=== PATIENT | female | born 1945 | race Caucasian/White ===

== ENCOUNTER 2019-05-02 11:25 | Emergency (ER) | payer MEDICARE ==
[2019-05-02 12:03] VITALS: BP 131/85
--- NOTE | 2019-05-02 12:04 | UC ---
Skin Complaint HPI - HPI Summary HPI Summary: 74 yo female presents with rash. She tells me that she has a large property with lots of weeds. On 04/25 she was trimming these weeds. On 04/26 and 04/27 began to notice a rash on her b/l arms, abdomen, and legs. Has been red, itchy, and blistering. Mildly painful. Has not been applying any creams or lotions. Unsure if she came into contact with any poison [place]/oak or parsnip. Denies fever, recent illness, facial swelling or throat swelling, difficulty breathing, or SOB. - History of Current Complaint Chief Complaint: UCRash Time Seen by Provider: 05/02/19 12:04 Stated Complaint: RASH Hx Obtained From: Patient Onset/Duration: Gradual Onset Onset Severity: Mild Current Severity: Moderate Pain Intensity: 5 Pain Scale Used: 0-10 Numeric - Allergy/Home Medications Allergies/Adverse Reactions: Allergies Allergy/AdvReac Type Severity Reaction Status Date / Time Sulfa (Sulfonamide Allergy Swelling Verified 05/02/19 12:04 Antibiotics) PMH/Surg Hx/FS Hx/Imm Hx Endocrine History: Dyslipidemia Cardiovascular History: Hypertension GI/ History: Gastroesophageal Reflux - Surgical History Surgical History: Yes Surgery Procedure, Year, and Place: hysterectomy with appy s. left shoulder rotator cuff 2007 [facility] [place] - Family History Known Family History: Positive: Cardiac Disease, Hypertension - Social History Occupation: Retired Lives: With Family Alcohol Use: Daily Alcohol Amount: 1/day Substance Use Type: None Smoking Status (MU): Never Smoked Tobacco Have You Smoked in the Last Year: No Review of Systems All Other Systems Reviewed And Are Negative: Yes Constitutional: Positive: Negative Skin: Positive: Rash Respiratory: Positive: Negative Cardiovascular: Positive: Negative Gastrointestinal: Positive: Negative Neurovascular: Positive: Negative Neurological: Positive: Negative Psychological: Positive: Negative Physical Exam - Summary Physical Exam Summary: GENERAL: NAD. WDWN. No pain distress. SKIN: B/L arms with mildly erythematous linear rash with 1-2mm scattered blisters. Similar appearing scant lesions on abdomen and upper legs. No open wound, drainage, bleeding, streaking, or warmth. NECK: Supple. Nontender. No lymphadenopathy. CHEST: No accessory muscle use. Breathing comfortably and in no distress. CV: Pulses intact. Cap refill <2seconds NEURO: Alert. PSYCH: Age appropriate behavior. Triage Information Reviewed: Yes Vital Signs: Initial Vital Signs Temp 97.8 F 05/02/19 11:59 Pulse 99 05/02/19 11:59 Resp 18 05/02/19 11:59 BP 131/85 05/02/19 11:59 Pulse Ox 98 05/02/19 11:59 Vital Signs Reviewed: Yes Course/Dx - Course Course Of Treatment: Suspect contact dermatitis. Will rx for kenalog cream to use on her arms as this is the area that is most concentrated. Also rx for prednisone given the diffuse spread of her dermatitis. - Diagnoses Provider Diagnosis: Poison [place] dermatitis Discharge - Sign-Out/Discharge Documenting (check all that apply): Patient Departure All imaging exams completed and their final reports reviewed: No Studies - Discharge Plan Condition: Stable Disposition: HOME Prescriptions: predniSONE TAB* [Deltasone TAB*] 50 mg PO DAILY #5 tab Triamcinolone 0.1% CREAM (NF) [Kenalog 0.1% Cream (NF)] 1 applic TOPICAL BID #1 tube Patient Education Materials: Poison [place] (ED) Referrals: Elias Blanco MD [Primary Care Provider] - Additional Instructions: If you develop a fever, shortness of breath, chest pain, new or worsening symptoms - please call your PCP or go to the ED immediately. Do not use the steroid cream on your face or in your groin region - Billing Disposition and Condition Condition: STABLE Disposition: Home
== END 2019-05-02 12:20 | disposition home or self-care (01) ==
LOC: UCEAST 11:25
DX: L23.7 Allergic contact dermatitis due to plants, except food (principal); T63.791A Toxic effect of contact with other venomous plant, accidental (unintentional), initial encounter; Y92.9 Unspecified place or not applicable; Z88.1 Allergy status to other antibiotic agents; I10 Essential (primary) hypertension
CPT/HCPCS: 99212; G0463

== ENCOUNTER 2022-01-18 02:05 | Observation (INO) ==
[2022-01-18] MEDS ORDERED: NS 0.9% 1000 ml BAG 1,000 ML IV ONE ×2 (03:15→07:55)
[2022-01-18] MEDS ORDERED: Ondansetron 4 mg VIAL 2 MG/ML 2 ml VIAL IV ONE ×2 (03:15→07:32)
[2022-01-18 04:09] LABS: ABS Lymphocytes 0.7 10^3/ul (1.0-4.8); ABS Monocytes 0.6 10^3/ul (0-0.8); ABS Neutrophils 15.2 10^3/ul (1.5-7.7); Hematocrit 42 % (35-47); Lymphocyte % 4.1 %; Mean Corpuscular HGB Conc 33 g/dL (31-36); Mean Corpuscular Hemoglobin 33 pg (27-31); Mean Corpuscular Volume 98 fL (80-97); Mean Platelet Volume 8.9 fL (7.4-10.4); Platelet Count 206 10^3/uL (150-450); Red Blood Count 4.29 10^6 /uL (3.70-4.87); Red Cell Distribution Width 14 % (10-15); White Blood Count 16.5 10^3/uL (3.5-10.8)
[2022-01-18 04:23] LABS: Albumin 3.7 g/dL (3.2-5.2); Amylase 53 U/L (29-103); CO2 Carbon Dioxide 19 mmol/L (22-32); Calcium 9.1 mg/dL (8.6-10.3); Chloride 101 mmol/L (101-111); Sodium 132 mmol/L (135-145)
[2022-01-18 04:29] LABS: ALT 20 U/L (7-52); Albumin/Globulin Ratio 1.5 (1-3); Alkaline Phosphatase 66 U/L (35-149); Blood Urea Nitrogen 26 mg/dL (6-24); C Reactive Protein 50.91 mg/L (<8.01); Globulin 2.4 g/dL (2-4); Glucose 246 mg/dL (70-100); Lipase 18 U/L (11.0-82.0); Total Protein 6.1 g/dL (6.4-8.9); eGFR CKD-EPI 47.6 (>60)
[2022-01-18 04:41] LABS: Anion Gap 12 mmol/L (2-11)
[2022-01-18] MEDS ORDERED: Iodixanol (CONTRAST) 320 MG/ML 100 ML SDV IV ONE (04:51)
[2022-01-18 05:11] LABS: Activated Partial Thrombo Time 39.5 seconds (26.0-38.0); INR 1.11 (0.86-1.15)
[2022-01-18 05:14] LABS: Potassium Redraw 4.2 mmol/L (3.5-5.0)
[2022-01-18 06:40] LABS: Urine Appearance Clear; Urine Bilirubin Negative (Negative); Urine Blood Negative (Negative); Urine Color Yellow; Urine Glucose 2+(150 mg/dL) (Negative); Urine Ketones Negative (Negative); Urine Nitrite Negative (Negative); Urine Protein Negative (Negative); Urine Specific Gravity 1.055 (1.002-1.030); Urine Urobilinogen Negative (Negative)
[2022-01-18 07:55] LABS: Hematocrit 39 % (35-47); Hemoglobin 13.3 g/dL (12.0-16.0)
[2022-01-18] MEDS ORDERED: Piperacillin/Tazobac ADVAN 3.375 GM in NS 0.9% 100 ml BAG 100 ML IV ONE (07:56)
[2022-01-18] MEDS ORDERED: PEG 3000 GI LAVAGE 1 GALLON PO ONE (07:56)
[2022-01-18] MEDS ORDERED: Piperacillin/Tazobac 3.375 GM BAG ONE (08:00)
[2022-01-18] MEDS ORDERED: Ondansetron 4 mg VIAL 2 MG/ML 2 ml VIAL IV PRN (09:18)
[2022-01-18] MEDS ORDERED: Dextrose 50% Syringe 50 ml 25 GM/50 ML SYRINGE IV PUSH PRN ×2 (09:20)
[2022-01-18] MEDS ORDERED: Lactated Ringers 1000 ml BAG 1,000 ML IV SCH ×2 (11:00→19:00)
[2022-01-18] MEDS ORDERED: Lactated Ringers 1000 ml BAG 1,000 ML IV ONE (11:04)
[2022-01-18] MEDS ORDERED: Sodium Phosphate ADULT ENEMA 133 ML BTL PR ONE ×2 (15:59→16:00)
[2022-01-18] MEDS ORDERED: Pantoprazole VIAL 40 MG VIAL IV PRN (16:43)
[2022-01-18] MEDS ORDERED: Midazolam 10 mg/10 ml VIAL 1 mg/ml 10 ml VIAL (10 mg) ONE (16:50)
[2022-01-18] MEDS ORDERED: fentaNYL 100 mcg/2 ml 50 MCG/ML VIAL ONE (16:51)
[2022-01-18 16:55] LABS: Hematocrit 40 % (35-47); Hemoglobin 13.6 g/dL (12.0-16.0)
[2022-01-18] MEDS ORDERED: Zosyn per Pharmacy NOTE FOLLOW UP SCH (17:00)
[2022-01-18] MEDS ORDERED: ZOSYN 3.375 GM x ONE DOSE over 30 miuntes IV (17:00)
[2022-01-18] MEDS ORDERED: hydrALAZINE 20 mg/ml 1 ML Vial IV IV SLOW PU ONE (21:32)
[2022-01-18] MEDS: Lactated Ringers 1000 ml BAG 1,000 ML IV SCH (23:16)
[2022-01-19] MEDS: ZOSYN 3.375 GM Q8H per EXTENDED INFUSION IV SCH ×3 (00:06→17:05)
[2022-01-19 06:25] LABS: ABS Lymphocytes 1.1 10^3/ul (1.0-4.8); ABS Monocytes 1.1 10^3/ul (0-0.8); ABS Neutrophils 11.2 10^3/ul (1.5-7.7); Hematocrit 36 % (35-47); Hemoglobin 12.4 g/dL (12.0-16.0); Mean Corpuscular HGB Conc 34 g/dL (31-36); Mean Corpuscular Hemoglobin 34 pg (27-31); Mean Corpuscular Volume 98 fL (80-97); Mean Platelet Volume 8.4 fL (7.4-10.4); Platelet Count 147 10^3/uL (150-450); Red Cell Distribution Width 13 % (10-15); White Blood Count 13.4 10^3/uL (3.5-10.8)
[2022-01-19 06:43] LABS: Calcium 8.4 mg/dL (8.6-10.3); Potassium 3.5 mmol/L (3.5-5.0); eGFR CKD-EPI 72.6 (>60)
[2022-01-19] MEDS: Lactated Ringers 1000 ml BAG 1,000 ML IV SCH ×2 (11:43→20:14)
[2022-01-20] MEDS: ZOSYN 3.375 GM Q8H per EXTENDED INFUSION IV SCH ×2 (01:13→08:25)
[2022-01-20] MEDS: Lactated Ringers 1000 ml BAG 1,000 ML IV SCH (04:13)
[2022-01-20 08:16] VITALS: BP 138/69
[2022-01-20 08:21] LABS: ABS Eosinophils 0.1 10^3/ul (0-0.6); ABS Lymphocytes 1.5 10^3/ul (1.0-4.8); ABS Monocytes 0.9 10^3/ul (0-0.8); ABS Neutrophils 8.7 10^3/ul (1.5-7.7); Eosinophil % 1.3 %; Hematocrit 34 % (35-47); Hemoglobin 11.4 g/dL (12.0-16.0); Lymphocyte % 13.2 %; Mean Corpuscular HGB Conc 34 g/dL (31-36); Mean Corpuscular Hemoglobin 33 pg (27-31); Mean Corpuscular Volume 98 fL (80-97); Mean Platelet Volume 8.4 fL (7.4-10.4); Platelet Count 147 10^3/uL (150-450); Red Blood Count 3.42 10^6 /uL (3.70-4.87); Red Cell Distribution Width 13 % (10-15); White Blood Count 11.2 10^3/uL (3.5-10.8)
[2022-01-20 08:40] LABS: Calcium 8.3 mg/dL (8.6-10.3); Potassium 3.3 mmol/L (3.5-5.0); eGFR CKD-EPI 80.7 (>60)
[2022-01-20] MEDS ORDERED: Potassium Chlor 20 meq TAB.ER PO ONE (15:28)
== END 2022-01-20 16:00 | disposition home or self-care (01) ==
LOC: EDHOLD 02:05 → ED 02:05 → MEDTELE 10:41
PROVIDERS: ADMIT Internal Medicine; ATTEND Internal Medicine

== ENCOUNTER 2024-02-25 14:43 | Inpatient (IN) ==
[2024-02-25] MEDS: Lactated Ringers 1000 ml BAG 1,000 ML IV ONE ×2 (15:50→16:45)
[2024-02-25 16:01] LABS: Hematocrit 42.2 % (35-45); Hemoglobin 14.4 g/dL (11.5-14.3); Mean Corpuscular Hemoglobin 32.6 pg (27-33); Mean Corpuscular Hgb Conc 34.2 g/dL (31-36); Mean Corpuscular Volume 95.4 fL (80-97); Mean Platelet Volume 8.6 fL (7.5-11.2); Platelet Count 202 10^3/uL (150-450); Red Blood Count 4.42 10^6/uL (3.63-4.92); Red Cell Distribution Width 13.5 % (12-17); White Blood Count 6.2 10^3/uL (3.8-11.8)
[2024-02-25 16:27] LABS: Activated Partial Thrombo Time 36.1 seconds (26.0-38.0)
[2024-02-25 16:39] LABS: INR 1.05 (0.83-1.13)
[2024-02-25] MEDS: Morphine 2 MG/ML SYRINGE IV ONE (16:43)
[2024-02-25] MEDS: Acetaminophen IV 1 GM/100ML 1,000 MG/100 ML BAG IV ONE (16:44)
[2024-02-25 16:47] LABS: ABS Lymphocytes 0.6 10^3/uL (1.0-4.8); ABS Monocytes 0.4 10^3/uL (0.0-0.9); ABS Neutrophils 5.2 10^3/uL (1.5-7.6); ABS Nucleated RBC 0.01 10^3/ul; Lymphocyte % 9.4 %; Nucleated Red Blood Cells % 0.1 %/100WBC (0.0-0.8)
[2024-02-25 16:56] LABS: Albumin 3.6 g/dL (3.2-5.2); Albumin/Globulin Ratio 1.6 (1-3); C Reactive Protein 119.92 mg/L (<8.01); Calcium 9.2 mg/dL (8.6-10.3); Creatinine, Serum 1.7 mg/dL (0.51-0.95); Globulin 2.2 g/dL (2-4); Magnesium 1.5 mg/dL (1.9-2.7); Potassium 4.9 mmol/L (3.5-5.0); Total Bilirubin 0.8 mg/dL (0.2-1.0); Total Protein 5.8 g/dL (6.4-8.9); eGFR CKD-EPI 30.1 (>60)
[2024-02-25] MEDS: Iodixanol (CONTRAST) 320 MG/ML 100 ML SDV IV ONE (18:19)
[2024-02-25] MEDS: Piperacillin/Tazobac 3.375 BAG 3.375 GM/100 ML BAG IV ONE (19:42)
[2024-02-25] MEDS ORDERED: Bupivacaine 0.25% EPI 200,000 30 ML SDV ONE (21:00)
[2024-02-25] MEDS ORDERED: Bupivacaine 0.25% SDV 30 ML ONE (21:00)
[2024-02-25] MEDS ORDERED: fentaNYL 100 mcg/2 ml 50 MCG/ML VIAL ONE (21:06)
[2024-02-25] MEDS ORDERED: Propofol 10 MG/ML 20 ML BTL ONE (21:06)
[2024-02-25] MEDS ORDERED: Ondansetron 4 mg VIAL 2 MG/ML 2 ml VIAL ONE (21:06)
[2024-02-25] MEDS ORDERED: Phenylephrine IV 10 MG/ML 1 ml VIAL ONE (21:07)
[2024-02-25] MEDS ORDERED: Lidocaine 2% PF 5 ML VIAL ONE ×2 (21:07→21:22)
[2024-02-25] MEDS ORDERED: metroNIDAZOLE IV 500 MG/100ML 500 MG/100 ML BAG ONE (22:49)
[2024-02-25] MEDS ORDERED: Rocuronium 50 mg VIAL 10 mg/ml 5 ml VIAL (50 mg) ONE (23:50)
[2024-02-25] MEDS ORDERED: Albumin Human 5% 12.5 GM/250 ML BTL IV ONE (23:50)
[2024-02-26] MEDS ORDERED: Propofol 10 MG/ML 20 ML BTL ONE (01:09)
[2024-02-26] MEDS: Propofol 10 mg/ml 100 ML BTL 1,000 MG/100 ML BTL IV SCH (02:45)
[2024-02-26] MEDS ORDERED: Zosyn per Pharmacy NOTE FOLLOW UP SCH (03:00)
[2024-02-26] MEDS: Chlorhexidine MOUTHWASH 0.12% 15 ML UDC TOPICAL SCH (04:09)
[2024-02-26 04:42] LABS: PCO2 Arterial 43 mmHg (35-45); PO2 Arterial 190 mmHg (80-100)
[2024-02-26 04:53] LABS: Urine Appearance Clear; Urine Bilirubin Negative (Negative); Urine Blood 2+ (Negative); Urine Color Yellow; Urine Glucose Trace (Negative); Urine Ketones Trace (Negative); Urine Nitrite Negative (Negative); Urine Protein 1+ (>=30 mg/dL) (Negative); Urine Specific Gravity 1.047 (1.002-1.030); Urine Urobilinogen Negative (Negative); Urine pH 5.5 (5.0-8.0)
[2024-02-26 05:06] LABS: ABS Lymphocytes 0.6 10^3/uL (1.0-4.8); ABS Monocytes 0.3 10^3/uL (0.0-0.9); ABS Neutrophils 6.2 10^3/uL (1.5-7.6); ABS Nucleated RBC 0.01 10^3/ul; Hematocrit 36.2 % (35-45); Hemoglobin 12.2 g/dL (11.5-14.3); Lymphocyte % 8.7 %; Mean Corpuscular Hemoglobin 32.8 pg (27-33); Mean Corpuscular Hgb Conc 33.8 g/dL (31-36); Mean Corpuscular Volume 97.2 fL (80-97); Mean Platelet Volume 8.8 fL (7.5-11.2); Nucleated Red Blood Cells % 0.1 %/100WBC (0.0-0.8); Platelet Count 165 10^3/uL (150-450); Red Blood Count 3.73 10^6/uL (3.63-4.92); Red Cell Distribution Width 13.7 % (12-17); White Blood Count 7.1 10^3/uL (3.8-11.8)
[2024-02-26] MEDS: fentaNYL 100 mcg/2 ml 50 MCG/ML VIAL IV SLOW PU PRN ×2 (05:19→08:12)
[2024-02-26] MEDS: Lactated Ringers 1000 ml BAG 1,000 ML IV ONE (05:22)
[2024-02-26 05:24] LABS: Calcium 7.9 mg/dL (8.6-10.3); Creatinine, Serum 1.14 mg/dL (0.51-0.95); Magnesium 1.4 mg/dL (1.9-2.7); Potassium 4.7 mmol/L (3.5-5.0); eGFR CKD-EPI 48.7 (>60)
[2024-02-26] MEDS ORDERED: Dextrose 50% Syringe 50 ml 25 GM/50 ML SYRINGE IV PUSH PRN (05:31)
[2024-02-26] MEDS: Magnesium Sulf 4 GM/100 ML IV 4,000 MG/100 ML BAG IVPB ONE (06:25)
[2024-02-26] MEDS: ZOSYN 3.375 GM x ONE DOSE over 30 miuntes IV (07:26)
[2024-02-26 07:36] LABS: Urine Bacteria Absent /HPF (Absent); Urine Red Blood Cell 3+(>10/hpf) /HPF (0-Trace); Urine Squamous Epithelial Cell Present /HPF (Absent); Urine White Blood Cell Trace(0-5/hpf) /HPF (0-Trace)
[2024-02-26] MEDS: Pantoprazole VIAL 40 MG VIAL IV SCH (08:08)
[2024-02-26] MEDS ORDERED: fentaNYL INFUSION 50 mcg/mL VL 2,500 MCG/50 ML VIAL IV SCH (09:00)
[2024-02-26] MEDS: Acetaminophen IV 1 GM/100ML 1,000 MG/100 ML BAG IV SCH (09:23)
[2024-02-26] MEDS: Furosemide 20 mg/2 ml IV VIAL IV ONE (09:23)
[2024-02-26 10:23] LABS: PCO2 Arterial 32 mmHg (35-45); PO2 Arterial 140 mmHg (80-100)
[2024-02-26 10:27] LABS: Hematocrit 32.2 % (35-45); Hemoglobin 10.8 g/dL (11.5-14.3)
[2024-02-26] MEDS: ZOSYN 3.375 GM Q8H per EXTENDED INFUSION IV SCH (11:53)
[2024-02-26 12:22] LABS: PCO2 Arterial 35 mmHg (35-45); PO2 Arterial 105 mmHg (80-100)
[2024-02-26] MEDS: HYDROmorphone 0.5 MG/0.5 ML SYRINGE IV SLOW PU PRN (12:47)
[2024-02-26] MEDS: Norepinephrine 4 MG/250mL D5W 4,000 MCG/250 ML BAG IV SCH (13:00)
[2024-02-26 17:13] LABS: Hematocrit 33.7 % (35-45); Hemoglobin 11.4 g/dL (11.5-14.3)
[2024-02-26 17:42] LABS: Calcium 7.7 mg/dL (8.6-10.3); Creatinine, Serum 1.26 mg/dL (0.51-0.95); Potassium 4.1 mmol/L (3.5-5.0); eGFR CKD-EPI 43.2 (>60)
[2024-02-26 22:29] LABS: Hemoglobin 10.9 g/dL (11.5-14.3)
[2024-02-27 04:32] LABS: Hematocrit 31.4 % (35-45); Hemoglobin 10.7 g/dL (11.5-14.3); Mean Corpuscular Hemoglobin 32.1 pg (27-33); Mean Corpuscular Volume 94.3 fL (80-97); Mean Platelet Volume 8.5 fL (7.5-11.2); Platelet Count 123 10^3/uL (150-450); Red Blood Count 3.33 10^6/uL (3.63-4.92); Red Cell Distribution Width 15.2 % (12-17); White Blood Count 8.8 10^3/uL (3.8-11.8)
[2024-02-27 05:03] LABS: Calcium 7.6 mg/dL (8.6-10.3); Creatinine, Serum 1.12 mg/dL (0.51-0.95); Magnesium 2.5 mg/dL (1.9-2.7); Potassium 3.9 mmol/L (3.5-5.0); eGFR CKD-EPI 49.7 (>60)
[2024-02-27 07:13] LABS: ABS Lymphocytes 0.7 10^3/uL (1.0-4.8); ABS Monocytes 0.3 10^3/uL (0.0-0.9); ABS Neutrophils 7.7 10^3/uL (1.5-7.6); Eosinophil % 0.2 %; Lymphocyte % 8.1 %; RBC Morphology Normal (Normal)
[2024-02-27] MEDS: Ondansetron 4 mg VIAL 2 MG/ML 2 ml VIAL IV PRN (11:42)
[2024-02-28 05:22] LABS: ABS Eosinophils 0.1 10^3/uL (0.0-0.5); ABS Monocytes 0.4 10^3/uL (0.0-0.9); ABS Neutrophils 9.3 10^3/uL (1.5-7.6); ABS Nucleated RBC 0.01 10^3/ul; Eosinophil % 0.7 %; Hematocrit 29.3 % (35-45); Mean Corpuscular Hemoglobin 32.3 pg (27-33); Mean Corpuscular Hgb Conc 34.1 g/dL (31-36); Mean Corpuscular Volume 94.7 fL (80-97); Mean Platelet Volume 8.4 fL (7.5-11.2); Nucleated Red Blood Cells % 0.1 %/100WBC (0.0-0.8); Platelet Count 136 10^3/uL (150-450); Red Blood Count 3.09 10^6/uL (3.63-4.92); Red Cell Distribution Width 14.9 % (12-17); White Blood Count 10.8 10^3/uL (3.8-11.8)
[2024-02-28 05:51] LABS: Calcium 7.7 mg/dL (8.6-10.3); Creatinine, Serum 0.86 mg/dL (0.51-0.95); Magnesium 1.9 mg/dL (1.9-2.7); Phosphorus 2.3 mg/dL (2.5-5.0); Potassium 3.6 mmol/L (3.5-5.0); eGFR CKD-EPI 68.3 (>60)
[2024-02-28] MEDS: Potassium Phosphate IV 10 MMOL in NS 0.9% 250 ml 250 ML IVPB ONE (12:08)
[2024-02-28] MEDS: Enoxaparin 40 MG/0.4 ML SYR SUBCUT SCH (15:32)
[2024-02-29 04:51] LABS: ABS Eosinophils 0.1 10^3/uL (0.0-0.5); ABS Monocytes 0.6 10^3/uL (0.0-0.9); ABS Neutrophils 6.8 10^3/uL (1.5-7.6); Eosinophil % 1.5 %; Hematocrit 28.1 % (35-45); Hemoglobin 9.7 g/dL (11.5-14.3); Lymphocyte % 12.2 %; Mean Corpuscular Hemoglobin 32.5 pg (27-33); Mean Corpuscular Hgb Conc 34.5 g/dL (31-36); Mean Corpuscular Volume 94.3 fL (80-97); Mean Platelet Volume 8.2 fL (7.5-11.2); Platelet Count 134 10^3/uL (150-450); Red Blood Count 2.98 10^6/uL (3.63-4.92); Red Cell Distribution Width 14.9 % (12-17); White Blood Count 8.6 10^3/uL (3.8-11.8)
[2024-02-29 05:34] LABS: Calcium 7.6 mg/dL (8.6-10.3); Creatinine, Serum 0.77 mg/dL (0.51-0.95); Magnesium 1.7 mg/dL (1.9-2.7); Phosphorus 2.4 mg/dL (2.5-5.0); Potassium 3.4 mmol/L (3.5-5.0); eGFR CKD-EPI 77.9 (>60)
[2024-02-29] MEDS: Magnesium Sulfate 2 gm BAG 2 GM/50 ML BAG IVPB ONE (07:46)
[2024-02-29] MEDS: KCL 20 MEQ/100 ML IVPREMIX 20 MEQ/100 ML BAG IV SCH (08:04)
[2024-02-29] MEDS: Pantoprazole VIAL 40 MG VIAL IV SCH (15:41)
[2024-03-01 06:57] LABS: Hematocrit 29.8 % (35-45); Hemoglobin 10.1 g/dL (11.5-14.3); Mean Corpuscular Hemoglobin 31.9 pg (27-33); Mean Corpuscular Hgb Conc 33.8 g/dL (31-36); Mean Corpuscular Volume 94.3 fL (80-97); Mean Platelet Volume 8.2 fL (7.5-11.2); Platelet Count 163 10^3/uL (150-450); Red Blood Count 3.16 10^6/uL (3.63-4.92); Red Cell Distribution Width 14.4 % (12-17); White Blood Count 7.3 10^3/uL (3.8-11.8)
[2024-03-01 07:39] LABS: ABS Eosinophils 0.1 10^3/uL (0.0-0.5); ABS Lymphocytes 0.9 10^3/uL (1.0-4.8); ABS Monocytes 0.6 10^3/uL (0.0-0.9); ABS Neutrophils 5.7 10^3/uL (1.5-7.6); Eosinophil % 1.2 %; Lymphocyte % 12.4 %; Nucleated Red Blood Cells % 0.1 %/100WBC (0.0-0.8)
[2024-03-01 07:51] LABS: Albumin 2.6 g/dL (3.2-5.2); Albumin/Globulin Ratio 1.3 (1-3); Calcium 7.8 mg/dL (8.6-10.3); Creatinine, Serum 0.7 mg/dL (0.51-0.95); Magnesium 1.6 mg/dL (1.9-2.7); Phosphorus 2.6 mg/dL (2.5-5.0); Potassium 3.2 mmol/L (3.5-5.0); Total Bilirubin 0.5 mg/dL (0.2-1.0); Total Protein 4.6 g/dL (6.4-8.9); eGFR CKD-EPI 87.4 (>60)
[2024-03-01] MEDS: Magnesium Sulf 4 GM/100 ML IV 4,000 MG/100 ML BAG IVPB ONE (14:05)
[2024-03-01] MEDS: Potassium Chlor 20 meq TAB.ER PO ONE (14:05)
[2024-03-01] MEDS: Enoxaparin 40 MG/0.4 ML SYR SUBCUT SCH (16:03)
[2024-03-01] MEDS: ZOSYN 3.375 GM Q8H per EXTENDED INFUSION IV SCH (22:27)
[2024-03-02 05:58] LABS: Hematocrit 29.8 % (35-45); Hemoglobin 10.2 g/dL (11.5-14.3); Mean Corpuscular Hemoglobin 32.1 pg (27-33); Mean Corpuscular Hgb Conc 34.1 g/dL (31-36); Mean Platelet Volume 8.1 fL (7.5-11.2); Platelet Count 193 10^3/uL (150-450); Red Blood Count 3.18 10^6/uL (3.63-4.92); Red Cell Distribution Width 14.3 % (12-17); White Blood Count 9.4 10^3/uL (3.8-11.8)
[2024-03-02 06:15] LABS: ABS Eosinophils 0.1 10^3/uL (0.0-0.5); ABS Lymphocytes 1.1 10^3/uL (1.0-4.8); ABS Neutrophils 7.1 10^3/uL (1.5-7.6); ABS Nucleated RBC 0.01 10^3/ul; Eosinophil % 1.1 %; Lymphocyte % 11.8 %; Nucleated Red Blood Cells % 0.1 %/100WBC (0.0-0.8)
[2024-03-02 06:48] LABS: Calcium 7.7 mg/dL (8.6-10.3); Creatinine, Serum 0.68 mg/dL (0.51-0.95); Magnesium 1.9 mg/dL (1.9-2.7); Phosphorus 2.9 mg/dL (2.5-5.0); Potassium 3.3 mmol/L (3.5-5.0)
[2024-03-02] MEDS: Potassium Chlor 20 meq TAB.ER PO ONE (09:32)
[2024-03-02] MEDS: Magnesium Sulfate 2 gm BAG 2 GM/50 ML BAG IV ONE (09:33)
[2024-03-02] MEDS: oxyCODONE/Acetamin 5/325 mg TAB PO PRN (09:33)
[2024-03-03] MEDS: oxyCODONE/Acetamin 5/325 mg TAB PO PRN (06:38)
[2024-03-04 10:07] VITALS: BP 135/62
== END 2024-03-04 12:04 | disposition home or self-care (01) | DRG 329 ==
LOC: ED 14:43 → EDHOLD 14:43 → AA 20:58 → ICU 02-26 03:58 → SSU 03-02 08:03
PROVIDERS: ADMIT Surgery; ATTEND Surgery